=== PATIENT | female | born 1965 | race Caucasian/White ===

== ENCOUNTER 2025-02-13 18:15 | Emergency (ER) | payer BC, SELFPAY ==
[2025-02-13 18:22] VITALS: BP 125/83
[2025-02-13 18:40] LABS: Hematocrit 39.3 % (37.0-47.0); Hemoglobin 13.5 g/dL (12.0-16.0); Mean Corp Hgb Conc. 34.4 g/dL (33.0-37.0); Mean Corpuscular Volume 88.9 fL (81.0-99.0); Nucleated Red Blood Cells % 0 %; Platelet Count 223 10^3/uL (130-400); Red Cell Dist. Width 12.0 % (11.5-14.5)
[2025-02-13 18:57] LABS: ALT (SGPT) 24 U/L (0-35); AST (SGOT) 24 U/L (14-36); Albumin 4.9 g/dl (3.5-5.0); Alkaline Phosphatase 80 U/L (38-126); Blood Urea Nitrogen 15 mg/dl (7-17); Calcium 9.9 mg/dl (8.4-10.2); Carbon Dioxide 25 mmol/L (22-30); Chloride 107 mmol/L (98-107); Glucose 97 mg/dl (70-99); Potassium 3.9 mmol/L (3.5-5.1); Sodium 139 mmol/L (135-145); Total Protein 8.2 g/dl (6.3-8.2); eGFR > 60.00
[2025-02-13 19:13] LABS: Troponin I < 0.012 ng/ml
[2025-02-13 21:49] VITALS: BP 106/76
--- NOTE | 2025-02-13 21:51 | ED.GENMED ---
History of Present Illness
General
Chief Complaint: Chest Pain
Source: patient
Exam Limitations: none
Time Seen by Provider: 02/13/25 21:43
Nursing documentation reviewed up to this point in time: agreed with
History of Present Illness
History of Present Illness:
Note:
CHIEF COMPLAINT(S)
Chest pain and arm discomfort.
HISTORY OF PRESENT ILLNESS
The patient is a 59-year-old female with no pmh who presented with chest pain experienced earlier today while working. 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 The pain was described as more localized to the
side of the chest and accompanied by discomfort in the arm. The patient mentioned the sensation felt like 'heaviness' and was not typical for her. The onset of symptoms appeared around 3:00 PM, though the patient was unable to give an exact time.
The patient reports no history of heart disease or specific prior episodes at this level of discomfort. The patient denied engaging in any physical activity at the time of symptom onset. She mentioned experiencing stress at work, which he believes
may be related. The pain diminished upon arrival to the medical facility and was different from pain experienced on palpation, which she described as external. There was an absence of known cardiac history or family history of heart disease. The
patient denied any recent travel or pain or swelling in the lower extremities. She is currently asymptomatic. She denies lightheadedness, dizziness, syncopal episodes. She sees a photographic restorer once a year for check ups. Had recent normal stress
testing, echocardiogram, as well as coronary artery calcium score.
FAMILY HISTORY
No family history of heart disease.
SOCIAL HISTORY
The patient denies smoking cigarettes, using illicit drugs, or consuming alcohol.
REVIEW OF SYSTEMS
- Cardiovascular: Chest pain, arm discomfort.
- Respiratory: Negative for sudden dyspnea or pleuritic pain.
- General: Stress-related onset, worked through initial symptoms.
PHYSICAL EXAM
General: Patient is well appearing and in no acute distress; non-toxic
Skin: Warm and dry, no rashes or lesions
Head: Normocephalic, atraumatic
Eyes: Sclera non-icteric. EOMs intact.
Cardiac: Regular rate and rhythm, no murmurs
Peripheral Vascular: No lower extremity swelling or edema
Pulm: Normal respiratory effort, no wheezes, rales, or rhonchi
Abdomen: No abdominal tenderness to palpation
Neuro: CN II-XII intact, no focal neurologic deficits.
Psychiatric: Appropriate mood and affect.
PROBLEM LIST
Acute: Chest pain with arm discomfort.
PLAN
- Repeat troponin test to monitor for potential peak levels indicative of cardiac injury.
- Obtain a chest x-ray to rule out pulmonary causes such as pneumothorax.
- Observation and reassessment once test results are available.
DIFFERENTIAL DIAGNOSIS
The Differential Diagnosis includes, in no particular order and is not limited to:
- Acute coronary syndrome
-Musculoskeletal chest pain
-Gastroesophageal reflux disease
-Pneumothorax
-Pericarditis
-Costochondritis
-anxiety-related chest pain
-Aortic dissection
-Myocarditis
CHART REVIEW
No prior ER physician documentation to review
MDM/DISPOSITION
The patient is a 59-year-old female with no pmh who presented with chest pain experienced earlier today while working. 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 The pain was described as more localized to the
side of the chest and accompanied by discomfort in the arm. The symptoms resolved without intervention. She had 2 negative troponins, normal CXR. ECG without ischemia. Suspect costochondritis. Discussed follow up with cards and pcp and strict return
precautions. Patient stable for discharge.
Review of Systems
Review of Systems
All Other Systems: ROS reviewed and negative except as documented in HPI and ROS
Phy Exam
Physical Exam
Physical Exam:
see hpi
Scores
Heart Score for Chest Pain Patients
STEMI patient?: No
History: Slightly or Non-Suspicious
ECG: Normal
Age: >45 - <65 years
Risk Factors: No Risk Factors
Troponin: </= Normal Limit
Heart Score for Chest Pain Patients: 1
Heart Score Risk: 2.5% MACE over next 6 weeks
Course
Orders/Labs/Results
Orders:
Orders
02/13/25 18:16
ECG [Electrocardiogram (*1)] Urgent
Reason for Study: Chest Pain
02/13/25 18:17
EKG- Treatment ONCE
02/13/25 18:33
CMP [Comprehensive Metabolic Panel] Urgent
Complete Blood Count/With Diff Urgent
Troponin I Urgent
02/13/25 22:01
CR Chest - 2 Views Urgent
Comment:
Reason For Exam: chest pain
02/13/25 22:04
Electrocardiogram (*1) Urgent
Reason for Study: Chest Pain
02/13/25 22:40
Troponin I Urgent
Abnormal Lab Results
02/13/25
18:33
MPV 10.7 H fL
(7.4-10.4)
02/13/25 18:33
02/13/25 18:33
Vital Signs
Initial and Last Documented VS:
Initial Vital Signs
Temp Pulse Resp BP Pulse Ox
98.1 F 71 16 125/83 99
02/13/25 18:22 02/13/25 18:22 02/13/25 18:22 02/13/25 18:22 02/13/25 18:22
Last Documented Vital Signs
Temp Pulse Resp BP Pulse Ox
98.1 F 59 13 119/62 99
02/13/25 18:22 02/13/25 23:30 02/13/25 23:30 02/13/25 22:00 02/13/25 22:06
*Pulse Oximetry
SaO2: 99
Oxygen Mode of Delivery: Room air
Patient hypoxic: no
*Critical Care Note
Total Time (30-74mins, 75-104mins- exclusive of procedures): Not Applicable
ED Attending Note
-
Portions of this chart may have been created with voice recognition software.� Occasional wrong word or��sound alike� substitutions may have occurred due to the inherent limitations of voice recognition software.
Discharge Plan
Departure
Patient Disposition: Home (Routine Discharge)
Date of Disposition: 02/13/25
Time of Disposition: 23:33
Patient with high blood pressure during this ER visit?: No
Condition: Good
Discharge Problem:
Chest pain
Instructions: Chest pain, BLOOD PRESSURE
Referrals:
[facility] [Other]
Activity Restrictions/Additional Instructions:
Please call your photographic restorer and let them know that you were evaluated in the emergency department. You had 2 troponins which were undetectable and your EKG is unremarkable.
PLEASE RETURN EMERGENCY DEPARTMENT SHOULD YOU DEVELOP ANY ACUTE WORSENING OF YOUR SYMPTOMS, FEVERS OR CHILLS, SHORTNESS OF BREATH, RETURN OF YOUR SYMPTOMS, DIZZINESS, LIGHTHEADEDNESS, JAW PAIN, OR ANY OTHER SIGNS OR SYMPTOMS WORRISOME TO YOU.
Interventions
Interventions:
*Risk Screen - Suicide Last Done: 02/13/25 18:22
*General Assessment Last Done: 02/13/25 22:09
*Neglect/Abuse Screening Last Done: 02/13/25 18:22
*ED- Fall Risk Assessment Last Done: 02/13/25 22:09
*ED COVID-19 Vaccine History Last Done: 02/13/25 22:09
*Nursing Disposition Last Done: 02/13/25 23:58
ED- Cardiac Assessment Last Done: 02/13/25 22:06
Discharge Date and Time
Discharge Date/Time: 02/13/25 23:59
Print Language: [id number]
[2025-02-13 22:00] VITALS: BP 119/62
[2025-02-13 22:09] VITALS: BMI 27.1
[2025-02-13 23:20] LABS: Troponin I < 0.012 ng/ml
== END 2025-02-13 23:59 | disposition home or self-care (01) ==
LOC: EMR 18:15
PROVIDERS: Emergency Medicine; Physician Assistant; EMERGENCY PHYSICIAN Emergency Medicine
DX: R07.89 Other chest pain (principal); M79.602 Pain in left arm; Z56.6 Other physical and mental strain related to work; Y93.89 Activity, other specified; Y92.89 Other specified places as the place of occurrence of the external cause; Y99.0 Civilian activity done for income or pay
CPT/HCPCS: 99284; 71046; 80053; 84484; 85025; 93005